=== PATIENT | male | born 1960 | race Caucasian/White ===

== ENCOUNTER 2024-04-27 07:37 | Day surgery (SDC) | payer BC ==
[2024-04-21 12:34] VITALS: BMI 27.8
[2024-04-27] MEDS ORDERED: LIDOCAINE HCL/PF 2% SDV 5ML VIAL ONE (07:58)
[2024-04-27] MEDS ORDERED: PROPOFOL 200 ML ONE (07:58)
[2024-04-27 09:31] VITALS: TEMP 98
[2024-04-27 09:32] VITALS: BP 121/64; PULSE 64; RESP 19
== END 2024-04-27 10:00 | disposition home or self-care (01) ==
LOC: FASU-ENDO 07:37
PROVIDERS: ATTEND Internal Medicine Gastroenterology
PROC: 0DJD8ZZ Inspection of Lower Intestinal Tract, Via Natural or Artificial Opening Endoscopic (ICD-10-PCS; principal; 2024-04-27 08:44)
DX: Z12.11 Encounter for screening for malignant neoplasm of colon (principal); Z86.0109 Personal history of other colon polyps; Z80.0 Family history of malignant neoplasm of digestive organs